=== PATIENT | male | born 1975 | race Caucasian/White ===

== ENCOUNTER 2018-10-19 20:27 | Emergency (ER) | payer OTHER ==
[~2018-10-19] VITALS: Ht 175.3 cm; Wt 72.6 kg
[2018-10-19] MEDS ORDERED: NORVASC2.5 M1 PO (21:01)
[2018-10-19] MEDS ORDERED: ZEGERID OTC 201 EACH PO (21:02)
[2018-10-19] MEDS ORDERED: VASOTEC5 MG PO (21:02)
[2018-10-20] MEDS ORDERED: KETO10TA2 PO (05:06)
== END 2018-10-20 05:11 | disposition home or self-care (01) ==
LOC: ER 20:27
DX: K40.90 Unilateral inguinal hernia, without obstruction or gangrene, not specified as recurrent (principal); K59.09 Other constipation